=== PATIENT | female | born 1980 | race Caucasian/White ===

== ENCOUNTER 2018-05-13 11:55 | Outpatient (CLI) | payer BC ==
[2018-05-13 13:14] LABS: Hemoglobin 13.6 g/dL (12.0-16.0); Mean Corpuscular HGB CONC 33.6 g/dL (32.0-36.0); Mean Corpuscular Hemoglobin 28.4 pg (27.0-31.0); Mean Corpuscular Volume 84.5 fL (78.0-98.0); Mean Platelet Volume 7.1 fL (7.4-10.4); Platelet Count 285 thou/uL (130-400); RBC Distribution Width 12.9 % (11.5-14.5); White Blood Cell (WBC) Count 8.4 thou/uL (4.8-10.8)
== END 2018-05-13 11:56 | disposition home or self-care (01) ==
LOC: LABBT 11:55
PROVIDERS: ATTEND Obstetrics & Gynecology
DX: Z01.812 Encounter for preprocedural laboratory examination (principal); N94.6 Dysmenorrhea, unspecified; N94.10 Unspecified dyspareunia
CPT/HCPCS: 85027

== ENCOUNTER 2018-05-19 15:12 | Outpatient (CLI) | payer BC | END 2018-05-19 15:13 | disposition home or self-care (01) | LOC: LABBT 15:12 | PROVIDERS: ATTEND Obstetrics & Gynecology | DX: Z01.812 Encounter for preprocedural laboratory examination (principal); N94.6 Dysmenorrhea, unspecified; N94.10 Unspecified dyspareunia; R10.32 Left lower quadrant pain | CPT/HCPCS: 86850; 86900; 86901 ==

== ENCOUNTER 2020-11-03 15:56 | Observation (INO) | payer BC ==
[2020-11-03] MEDS ORDERED: HYDROcodone/Acetaminophen 5/325 mg Tablet PO PRN (19:05)
[2020-11-03] MEDS ORDERED: Ondansetron PF 4 MG/2 ML Vial IVP PRN (19:05)
[2020-11-03] MEDS ORDERED: Ondansetron ODT 4 MG TAB PO PRN (19:05)
--- NOTE | 2020-11-03 19:09 | PDOC.HHP ---
Hospitalist HPI - History of Present Illness Abdominal pain History of Present Illness: Patient is a 40-year-old female who presented to the emergency department and [place]. Initially the patient reported that she had pain in her pelvic area for a couple of days. Ultimately migrated to the left pelvic area. She reported the pain as primarily feeling like bowel cramping or trapped gas. Patient had a history of PCOS and endometriosis and she initially thought it was related to that. She reports that her pain would become so severe times that she was having some nausea. She has not eaten anything today. She has not had any actual vomiting. She has had some chills and believes she may have had some low-grade fever but nothing significant. ED Course: Patient initially presented to the emergency department [place]. There she was noted to have a white count of over 17,000. She had a CT scan of the abdomen and pelvis which revealed sigmoid diverticulitis without evidence of free air or rupture. She was given a dose of cefepime and Flagyl and transferred to this facility. Hospitalist ROS - Review of Systems Constitutional: reports: fever (Mild), chills Respiratory: denies: cough, shortness of breath Cardiovascular: denies: chest pain, palpitations Gastrointestinal: reports: nausea, abdominal pain. denies: vomiting, diarrhea, constipation All other systems reviewed; all pertinent +/- noted in HPI/Subj - Medication Medications: Prozac 20 mg p.o. daily Metformin 500 mg p.o. daily hormone replacement which is unknown. Hospitalist History - Past Medical History Other Medical History: Polycystic ovary disease, endometriosis, kidney stones. - Past Surgical History Other Surgical History: Simple hysterectomy without oophorectomy. - Family History Family History: reports: cardiac disorder (Mother), hypertension (Mother) - Social History Smoking Status: Never smoker Alcohol: reports: None Drugs: reports: none Living Situation: With Family - Exam General Appearance: NAD, awake alert Eye: PERRL Heart: RRR, no murmur, no gallops, no rubs, normal peripheral pulses Respiratory: CTAB, no wheezes, no rales, no ronchi, normal chest expansion, no tachypnea, normal percussion Gastrointestinal: soft, non-distended, normal bowel sounds, no palpable masses, no hepatomegaly, no splenomegaly, no bruit, no guarding, tender to palpation (Left pelvis) Extremities: no cyanosis, no clubbing, no edema Skin: normal turgor Neurological: no focal deficits Musculoskeletal: normal tone, normal strength, no muscle wasting Psychiatric: normal affect, normal behavior, A&O x 3 Hospitalist Results - Radiology Interpretation CT scan - abdomen Additional Comment: Sigmoid diverticulitis without evidence of rupture or free air Hospitalist H&P A/P - Problem (1) Diverticulitis Code(s): K57.92 - DVTRCLI OF INTEST, PART UNSP, W/O PERF OR ABSCESS W/O BLEED Status: Acute (2) Nausea Code(s): R11.0 - NAUSEA Status: Acute - Plan Plan: Diverticulitis: Patient has classic presentation and CT findings. She has leukocytosis with potentially some low-grade fever. She has no evidence of perforation. We will continue with IV antibiotics tonight. Patient has had some nausea although she does not appear to have any significant vomiting. This may make it difficult to treat with p.o.'s at this time. We will keep her in observation overnight with IV antibiotics. She was evaluated by general surgery who felt the patient was stable as well. Nausea: Patient reports this is primarily due to the severe pain that she was having related to her diverticulitis. She feels better at this time. We will try to let her take some p.o.'s today. If she can continue to take p.o.'s adequately will likely be able to discharge her home in the morning on p.o.'s.
[2020-11-03] MEDS ORDERED: Acetaminophen 325 MG TAB ONE (21:23)
--- NOTE | 2020-11-03 22:58 | PDOC.CONS ---
- Consultation Encounter Date: 11/03/20 Encounter Time: 22:53 CHIEF COMPLAINT: Abdominal pain HISTORY OF PRESENT ILLNESS: 40-year-old female with 5-day history of abdominal pain. The pain is described as severe, cramping, intermittent and located in the lower abdomen/left hemiabdomen. She presented to an outside emergency department in [place] where computed tomography the abdomen demonstrated inflammation around the sigmoid colon consistent with uncomplicated diverticulitis. She was noted to have a leukocytosis of 17.8. Her symptoms are associated with anorexia and some nausea. She does not endorse some chills and possible subjective fevers. REVIEW OF SYSTEMS: General: Chills and subjective fever Eyes: Denies visual changes, pain, or irritation ENT: Denies changes in hearing, nasal discharge, or sore throat Cardiovascular: Denies chest pain, palpitations, shortness of breath, or edema. Respiratory: Denies cough, shortness of breath, or wheezing Gastrointestinal: Positive per HPI; constipation Genitourinary: Denies frequent urination or dysuria Musculoskeletal: Denies pain or restricted motion Integumentary: Denies abnormal rashes, sores, or skin lesions Neurological: Denies numbness, tingling, or weakness. Psychiatric: Denies new onset anxiety or depression Endocrine: Denies temperature intolerances, polyuria, or excessive thirst Hematologic: Denies abnormal bruising or bleeding PAST MEDICAL HISTORY: Depression PCOS PAST SURGICAL HISTORY: Hysterectomy FAMILY HISTORY: No family history of diverticulitis SOCIAL HISTORY Never smoker, denies illicit drug use, endorses occasional alcohol consumption. ALLERGIES: No known drug allergies PHYSICAL EXAM: Vital Signs: HR 100 BP 121/77 T 98.7 RR [ ] SpO2 95% room air General: Alert and oriented, no acute distress ENT: Sclera anicteric, pupils equal and reactive, mucous membranes moist Neck: No jugular venous distention, trachea midline Cardiovascular: Regular rate and rhythm Pulmonary: Clear to auscultation Abdominal: Soft, nondistended, tender to palpation in the lower abdomen with no evidence of peritonitis Genitourinary: Normal anatomy Rectal: Deferred Integument: No abnormal rashes or lesions Musculoskeletal: No gross deformities or edema, normal range of motion LABORATORY: Laboratory analysis reviewed and is grossly normal, with the exception of a leukocytosis of 17.8 with 84% neutrophils. Hemoglobin 14.4 IMAGING: Computed tomography abdomen reviewed as well as radiology rotation. Demonstrates few scattered diverticula with inflammation around the sigmoid colon consistent with uncomplicated diverticulitis. ASSESSMENT: 40-year-old female with uncomplicated diverticulitis PLAN: The natural history of diverticulitis was discussed in detail with the patient, to include her management options, which includes outpatient management. The patient will be placed in observation with the hospitalist service. Recommend no p.o. and IV antibiotics. We will continue to follow.
[2020-11-03] MEDS ORDERED: Famotidine 20 MG TAB ONE (23:16)
[2020-11-03] MEDS: Famotidine 20 MG TAB PO SCH (23:26)
[2020-11-03] MEDS: Sodium Chloride 0.9% 1,000 ML IV SCH (23:27)
[2020-11-04 01:31] LABS: SARS-CoV-2 PCR by NAA Not Detected (NotDetected)
[2020-11-04] MEDS ORDERED: Sodium Chloride 0.9% 10 ML ONE (04:08)
[2020-11-04] MEDS: Sodium Chloride 0.9% 1,000 ML IV SCH (04:13)
[2020-11-04 06:18] VITALS: BMI 33.2
[2020-11-04 06:21] LABS: #Eosinphils 0.1 thou/uL (0.0-0.7); #Lymphocytes 2.5 thou/uL (1.20-3.40); #Monocytes 0.9 thou/uL (0.11-0.59); #Neutrophils 7.3 thou/uL (1.40-6.50); %Basophils 0.2 % (0.0-1.0); %Eosinophils 1.3 % (0.0-10.0); %Lymphocytes 23.4 % (21.0-51.0); %Neutrophils 67.1 % (42.0-75.0); Hemoglobin 11.7 g/dL (12.0-16.0); Mean Corpuscular HGB CONC 32.2 g/dL (32.0-36.0); Mean Corpuscular Hemoglobin 28.7 pg (27.0-31.0); Mean Platelet Volume 7.3 fL (7.4-10.4); Platelet Count 214 thou/uL (130-400); Red Blood Cell (RBC) Count 4.08 mill/uL (4.20-5.40); White Blood Cell (WBC) Count 10.8 thou/uL (4.8-10.8)
[2020-11-04 07:36] VITALS: TEMP 98.1
[2020-11-04] MEDS ORDERED: metroNIDAZOLE 500 MG TAB PO SCH (09:00)
[2020-11-04] MEDS: Famotidine 20 MG TAB PO SCH (09:02)
[2020-11-04] MEDS ORDERED: Piperacillin/Tazobactam 3.375 GM in Sodium Chloride 0.9% 100 ML IVPB SCH (09:15)
[2020-11-04 11:52] VITALS: BP 112/63
[2020-11-04] MEDS ORDERED: Saccharomyces boulardii 250 MG CAP PO SCH (21:00)
--- NOTE | 2020-11-04 22:54 | PDOC.DS.DS ---
Provider - Provider Date of Admission: 11/03/20 17:30 Date of Discharge: 11/04/20 Admitting Provider: Julio C Bolanos MD Consultations: General Surgery Primary Care Physician: Claudia Israel PA-C Course - Hospital Course Hospital Course: Patient is a 40-year-old female with diverticulosis presented to the emergency room with five-day history of lower abdominal discomfort which was cramping in nature along with nausea. She was unable to tolerate oral diet. CT scan of the abdomen in the emergency room showed findings consistent with sigmoid diverticulitis without any free air or free fluid in the abdomen. WBC count on admission was 17.8 with left shift. She was admitted to the hospital with the above diagnosis. She was started on antibiotics and was evaluated by general surgery who recommended conservative management. Antibiotics have been transitioned to oral. Her diet has been advanced per general surgery. WBC count has normalized. She has been cleared by general surgery for discharge. Final diagnosis: Sepsis due to sigmoid diverticulitispresent on admission CKD stage II Obesity with a BMI 33.2 Anxiety Polycystic ovarian disease Resuscitation Status: 11/03/20 19:05 Resuscitation Status Routine Resuscitation Status: FULL: Full Resuscitation - Labs Lab Results: 11/04/20 06:06 Abnormal Lab Results - Last 48 hrs 11/04/20 06:06: RBC 4.08 L, Hgb 11.7 L, MPV 7.3 L, Neutrophils # 7.3 H, Monocytes # 0.9 H - Physical Exam Vitals: Vital Signs (12 hours) Temp Pulse Resp BP Pulse Ox 11/04/20 11:51 98.1 F 88 20 112/63 99 Weight Admit Weight 193 lb 11.2 oz Weight 193 lb 11.2 oz Physical Exam: The patient was seen and examined on the day of discharge. Plan - Discharge Medications Prescriptions: metroNIDAZOLE [Flagyl] 500 mg PO TID #15 tab Saccharomyces boulardii [Florastor] 250 mg PO DAILY #30 cap Levofloxacin [Levaquin] 500 mg PO DAILY #5 tab Home Medications: Medication Instructions Recorded Confirmed Type FLUoxetine HCl [Prozac] 20 mg PO DAILY 05/13/18 11/04/20 History Albuterol Sulfate [Albuterol 8.5 gm IH PRN PRN 11/04/20 11/04/20 History Sulfate Hfa] Levofloxacin [Levaquin] 500 mg PO DAILY #5 tab 11/04/20 Rx Progesterone, Micronized 100 mg PO DAILY 11/04/20 11/04/20 History [Progesterone] Saccharomyces boulardii [Florastor] 250 mg PO DAILY #30 cap 11/04/20 Rx metFORMIN [Glucophage] 500 mg PO QPM-WM 11/04/20 11/04/20 History metroNIDAZOLE [Flagyl] 500 mg PO TID #15 tab 11/04/20 Rx Allergies: No Known Allergies Allergy (Verified 11/04/20 05:42) - Follow up Plan Referrals: Chago Olivares MD [Active] - 14 Days Claudia Israel PA-C [Primary Care Provider] - 7 Days Disposition: HOME Quality - Care Measures CORE MEASURES:: N/A
--- NOTE | 2020-11-05 06:22 | PRG ---
DATE OF SERVICE: 11/04/2020 SUBJECTIVE: 40-year-old female with a history of diverticulosis who presents with abdominal pain. General Surgery was consulted for evaluation of diverticulitis. This morning on rounds the patient was walking around the room. Says her pain is controlled and she is tolerating her current diet. OBJECTIVE: VITAL SIGNS: Blood pressure 112/63, pulse 88, temperature 98.1, respiratory rate 20, oxygen saturation 99% on room air. GENERAL: Awake, alert, and oriented, moving around the room. GCS 15. HEENT: Unremarkable. ABDOMEN: Soft, nondistended. LUNGS: Nonlabored breathing. Good inspiratory and expiratory effort. EXTREMITIES: Moves all 4 extremities. LABORATORY DATA: CBC; white count 10.8, hemoglobin 11.7, hematocrit 36.3, platelets 214. ASSESSMENT: 40-year-old female with uncomplicated diverticulitis. PLAN: The patient is tolerating diet, ambulating well. We will switch to oral antibiotics, Levaquin and Flagyl. Patient is stable for discharge at this time. General Surgery will sign off. Patient was seen and evaluated with Dr. Tate on morning rounds. Job ID: [id number]
== END 2020-11-04 13:12 | disposition home or self-care (01) ==
LOC: ERS 15:56 → ERHOLD 17:30 → 3SE 11-04 03:04
PROVIDERS: ADMIT Internal Medicine; ATTEND Internal Medicine
DX: A41.9 Sepsis, unspecified organism (principal); K57.32 Diverticulitis of large intestine without perforation or abscess without bleeding; N18.2 Chronic kidney disease, stage 2 (mild); F41.9 Anxiety disorder, unspecified; E28.2 Polycystic ovarian syndrome; F32.9 Major depressive disorder, single episode, unspecified; E66.9 Obesity, unspecified; Z68.33 Body mass index [BMI] 33.0-33.9, adult; Z79.84 Long term (current) use of oral hypoglycemic drugs; Z79.899 Other long term (current) drug therapy; Z20.822 Contact with and (suspected) exposure to COVID-19
CPT/HCPCS: 36415; 85025; 87635; 99285; G0378; Q0162; U0003; U0005

== ENCOUNTER 2023-01-08 13:54 | Outpatient (CLI) | payer BC | END 2023-01-08 13:55 | disposition home or self-care (01) | LOC: CT 13:54 | PROVIDERS: ATTEND Physician Assistant Medical | DX: R10.32 Left lower quadrant pain (principal); K80.20 Calculus of gallbladder without cholecystitis without obstruction; K57.30 Diverticulosis of large intestine without perforation or abscess without bleeding | CPT/HCPCS: 74177 ==